=== PATIENT | male | born 1965 | race Caucasian/White ===

== ENCOUNTER 2022-08-23 23:49 | Emergency (ER) | payer SELFPAY ==
[~2022-08-23] VITALS: Ht 167.6 cm; Wt 93.0 kg
[2022-08-24 00:19] VITALS: BP 200/108
== END 2022-08-24 05:30 | disposition left against medical advice (07) ==
LOC: ER 23:49
DX: Z53.21 Procedure and treatment not carried out due to patient leaving prior to being seen by health care provider (principal)